=== PATIENT | female | born 1940 | race Two or more races ===

== ENCOUNTER 2019-07-17 21:53 | Inpatient (IN) | payer MEDICARE, OTHER ==
[~2019-07-17] VITALS: Ht 157.5 cm; Wt 79.8 kg
[2019-07-17] MEDS ORDERED: OLME20TA13 PO (22:22)
[2019-07-17] MEDS ORDERED: APIX2.5T PO (22:22)
[2019-07-17] MEDS ORDERED: AMLO10TA7 PO (22:22)
[2019-07-17] MEDS ORDERED: ESOM40CA PO (22:22)
[2019-07-17] MEDS ORDERED: FURO20TA4 PO (22:22)
[2019-07-17] MEDS ORDERED: PARI1CAP PO (22:22)
[2019-07-17] MEDS ORDERED: HYDR-3980 PO (22:22)
[2019-07-17] MEDS ORDERED: FEBU40TA PO (22:22)
[2019-07-17] MEDS ORDERED: CETI-110 PO (22:22)
--- NOTE | 2019-07-17 22:40 | NUR ---
Admitted patient from [facility] with admitting diagnosis of R hip replacement. Patient arrived in the unit @2124 through gurney, accompanied by two general service technician and three family members. Not in acute distress or SOB. AAO x 2, sometimes confused. On room air. Condition fair. Persian speaking. Allergic to sulfa, cephalexin, and metronidazole. Full code. Dr. Meza was informed. History was taking from the family. Physical assessment done. MRSA swap done and sent to the lab. Skin assessed, picture taken and put in the chart. Medication reconciliation done, contacted [facility] on-call, and waiting for Estefania TIMBER HEWER to respond. Bed in low and lock position, bed alarm on, side rail is up x2 for safety. Educated patient to use call light. Call light and frequently used items within reach. Continue to monitor.
[2019-07-17 23:09] VITALS: BP 146/63
[2019-07-17] MEDS ORDERED: ACETAMINOPHEN 325 MG TABLET PO PRN (23:15)
[2019-07-17] MEDS: APIXABAN 5 MG TABLET PO SCH (23:15)
--- NOTE | 2019-07-17 23:40 | NUR ---
Patient had high temperature. Checked two times: T: 100.6 F, 100.1 F. Cooling measure applied. Contacted [facility] on-call. Received order of Tylenol 650 mg Q6HPRN from Estefania GUTIERREZ. Medication administered. Rechecked T after half an hour, T: 99.9 F. Continue to monitor.
[2019-07-18] MEDS: HYDROCODONE/APAP 5-325MG TABLET PO PRN (03:04)
[2019-07-18 04:00] VITALS: BP 151/72
[2019-07-18] MEDS: PANTOPRAZOLE SODIUM 40 MG TABLET.DR PO SCH (06:40)
[2019-07-18 08:00] VITALS: BP 143/66
[2019-07-18] MEDS: CHOLECALCIFEROL 400 UNITS TABLET PO SCH (08:48)
[2019-07-18] MEDS: ALLOPURINOL 100 MG TABLET PO SCH (08:48)
[2019-07-18] MEDS: CETIRIZINE HCL 10 MG TABLET PO SCH (08:48)
[2019-07-18] MEDS: APIXABAN 5 MG TABLET PO SCH (08:50)
[2019-07-18] MEDS ORDERED: AMLODIPINE 10 MG TABLET PO SCH (09:00)
[2019-07-18] MEDS ORDERED: FUROSEMIDE 20 MG TABLET PO SCH (09:00)
[2019-07-18] MEDS ORDERED: LOSARTAN POTASSIUM 25 MG TABLET PO SCH (09:00)
[2019-07-18 10:34] LABS: CARBON DIOXIDE 27 mmol/L (21-32); CHLORIDE 97 mmol/L (98-107); CREATININE 1.4 mg/dL (0.6-1.3); GLUCOSE 144 mg/dL (74-106); POTASSIUM 4.8 mmol/L (3.5-5.1); UREA NITROGEN, BLOOD 31 mg/dL (7-18)
[2019-07-18 10:56] LABS: BASOPHILS # (AUTO) 0.1 K/uL (0.0-8.0); BASOPHILS % (AUTO) 0.5 % (0.0-2.0); EOSINOPHILS # (AUTO) 0.1 K/uL (0.0-0.7); EOSINOPHILS % (AUTO) 0.6 % (0.0-7.0); HEMATOCRIT 23.8 % (31.2-41.9); HEMOGLOBIN 7.9 g/dL (10.9-14.3); LYMPHOCYTES # (AUTO) 1.1 K/uL (20.0-40.0); LYMPHOCYTES % (AUTO) 7.8 % (20.5-51.5); MEAN CORPUSCULAR HEMOGLOBIN 30.8 uug (24.7-32.8); MEAN CORPUSCULAR HGB CONC 33 g/dL (32.3-35.6); MEAN CORPUSCULAR VOLUME 93.4 fL (75.5-95.3); MONOCYTES # (AUTO) 1.4 K/uL (2.0-10.0); MONOCYTES % (AUTO) 10.7 % (0.0-11.0); NEUTROPHILS # (AUTO) 10.8 K/uL (1.8-8.9); NEUTROPHILS % (AUTO) 80.4 % (38.5-71.5); PLATELET COUNT (AUTO) 263 K/uL (179-408); RED BLOOD CELL COUNT(AUTO) 2.55 MIL/uL (3.63-4.92); WHITE BLOOD COUNT (AUTO) 13.5 K/uL (3.8-11.8)
[2019-07-18 11:05] LABS: ALANINE AMINOTRANSFERASE 22 U/L (14-59); ALKALINE PHOSPHATASE 91 U/L (50-136); ASPARTATE AMINOTRANSFERASE 33 U/L (15-37); BILIRUBIN,DIRECT 0.2 mg/dL (0.0-0.2); BILIRUBIN,TOTAL 0.8 mg/dL (0.2-1.0); MAGNESIUM 1.6 mg/dL (1.8-2.4); PHOSPHOROUS 4.2 mg/dL (2.5-4.9); TOTAL PROTEIN, SERUM 6.8 g/dL (6.4-8.2)
[2019-07-18 11:40] LABS: IRON, SERUM 12 ug/dL (50-175)
[2019-07-18 15:17] VITALS: BP 126/52
[2019-07-18] MEDS: ACETAMINOPHEN 325 MG TABLET PO PRN (18:50)
[2019-07-18 20:16] VITALS: BP 119/57
[2019-07-18] MEDS: HYDROCODONE/APAP 10-325 MG TABLET PO PRN (21:18)
--- NOTE | 2019-07-18 21:25 | NUR ---
Received patient sleeping in bed. Not in acute distress or SOB, but her skin looked pale. On room air. Able to make needs known. Body gesture and facial grimace showed that she is in pain. Family at the bedside. Family asked her about the level of the pain, stated severe pain. PRN Narco 10-325 mg administered. Physical assessment done. Fall prevention observed. Safety measures maintained. Bed in low and lock position, alarm on, side rails up x2 for safety. Call light and frequently used items within reach. Continue to monitor.
--- NOTE | 2019-07-19 03:10 | NUR ---
Tried two times to collect the urine using bedpan, unsuccessful. Collected the urine by straight catheter and sent the sample to the lab.
[2019-07-19 03:54] LABS: *BILIRUBIN,URIN NEGATIVE (NEGATIVE); *COLOR,URINE YELLOW (YELLOW); *KETONES,URINE NEGATIVE (NEGATIVE); *UROBILINOGEN,URINE 0.2 E.U./dl (NORMAL); LEUKOCYTE ESTERASE ,URINE 2+ (NEGATIVE); NITRITE, URINE POSITIVE (NEGATIVE); PH,URINE 5.5 (5.0-8.0); UGLUCOSE NEGATIVE (NEGATIVE)
[2019-07-19 03:57] LABS: *BLOOD, URINE TRACE (NEGATIVE); *CLARITY,URINE SLIGHTLY CLOUDY (CLEAR)
[2019-07-19 04:00] LABS: BACTERIA,URINE MANY /HPF (NONE SEEN); SQUAMOUS EPITHELIAL CELL,UR FEW /HPF (NONE SEEN); WBC,URINE 50-80 /HPF (0-3)
[2019-07-19 05:27] VITALS: BP 155/72
[2019-07-19] MEDS: PANTOPRAZOLE SODIUM 40 MG TABLET.DR PO SCH (06:29)
[2019-07-19 07:56] VITALS: BP 134/57
[2019-07-19] MEDS: HYDROCODONE/APAP 5-325MG TABLET PO PRN ×4 (08:01→23:55)
--- NOTE | 2019-07-19 08:30 | NUR ---
PATIENT IS IN BED, NOTED IN PAIN, FACIAL GRIMACING, MOANING, WHILE MOVING DURING CHANGE, OFFERED PAIN MEDICATION, PATIENT AGREED, NORCO ADMINISTERED ORDERED, CONTINUE TO MONITOR FOR PAIN. NO OTHER DISTRESS NOTED AT THIS TIME
[2019-07-19] MEDS ORDERED: AMLODIPINE 10 MG TABLET PO SCH (09:00)
[2019-07-19] MEDS: CHOLECALCIFEROL 400 UNITS TABLET PO SCH (09:09)
[2019-07-19] MEDS: CETIRIZINE HCL 10 MG TABLET PO SCH (09:10)
[2019-07-19] MEDS: ALLOPURINOL 100 MG TABLET PO SCH (09:10)
--- NOTE | 2019-07-19 09:30 | NUR ---
PATIENT IS SITTING IN BED, ALERT, AWAKE, ORIENTED X4, VERBALLY RESPONSIVE, NO DISTRESS NOTED, NO DIZZINESS OR DROWSINESS NOTED. NO FACIAL GRIMACING, OR MOANING NOTED AT THIS TIME
[2019-07-19] MEDS: LEVOFLOXACIN 250 MG TABLET PO SCH (09:58)
--- NOTE | 2019-07-19 11:41 | NUR ---
TRANSFERRED PATIENT TO CHAIR WITH OPHTHALMIC TECHNICIAN APPRENTICE OF PT. DAUGHTER AT BEDSIDE, NAME SHRUTHI, STATED SHE DOES NOT WANT HER MOTHER TO HAVE NORCO, DAUGHTER IS VERY RESISTANT TO PAIN MEDICATION AND STATED SHE ONLY WANTS TO HAVE HER MOTHER TO TYLENOL. TRIED TO EXPLAIN TO DAUGHTER SHRUTHI THAT PAIN NEED TO BE WELL MANAGED IN ORDER TO MAKE PATIENT PARTICIPATE IN PT, OT SERVICES.
--- NOTE | 2019-07-19 12:30 | NUR ---
PATIENT FELT DIZZY WHILE SITTING IN CHAIR, PUT BACK TO BED WITH CURING SUPERVISOR OF OT, VITAL TAKEN, BLOOD PRESSURE 107/43, PULSE 108,RESP 16, TEMP 98.1, O2 SAT AT ROOM AIR IS 95%, CONTINUE TO MONITOR Addendum: 07/19/19 at 1423 by ARUNA LAWTON RN, RN BLOOD PRESSURE TAKEN AGAIN LAYING POSITION IS 108/48, PULSE 100, RESP 18,TEMP 98.1, O2 SAT 95 AT ROOM AIR. NO ORTHOSTATIC BLOOD PRESSURE NOTED
--- NOTE | 2019-07-19 13:39 | NUR ---
PATIENT DAUGHTER SHRUTHI REQUESTED TYLENOL TO BE GIVEN TO PATIENT FOR PAIN, ADMINISTERED ORDERED.
[2019-07-19] MEDS: ACETAMINOPHEN 325 MG TABLET PO PRN (13:43)
--- NOTE | 2019-07-19 14:25 | NUR ---
REPORTED TO DR STEVENS REGARDING PATIENT CURRENT CONDITION UNABLE TO TOLERATE SITTING IN CHAIR, FELT DIZZY. PER MD CONTINUE TO MONITOR
--- NOTE | 2019-07-19 14:57 | NUR ---
PATIENT SITTING AT EDGE OF THE BED, WITH ASSISTANCE OF NURSE AND PT. TOLERATED WELL. NO DISTRESS NOTED, NO ORTHOSTATIC BLOOD PRESSURE NOTED.
[2019-07-19 16:35] VITALS: BP 134/52
--- NOTE | 2019-07-19 17:23 | NUR ---
PATIENT STARTED ON LEVAQUIN ORDERED, FOR UTI, NO ADVERSE REACTION NOTED, GOOD PERICARE PROVIDED, ENCOURAGED TO INCREASED PO FLUIDS, TEACHING PROVIDED FOR SPIROMETER.
--- NOTE | 2019-07-19 19:30 | NUR ---
Received patient in bed awake, alert and oriented w/ daughter at bedside. No SOB noted, not in distress. No complaints of pain at this time. Safety measures observed. Call light in reach
[2019-07-19 19:46] VITALS: BP 136/69
--- NOTE | 2019-07-19 22:00 | NUR ---
Patient seen by Sulma GUTIERREZ w/ n.o for bladder scan q8 and may straight cath for residuals 300 and above, to start this morning.
[2019-07-20] VITALS (9 sets, daily range): BP systolic 117–141; BP diastolic 50–65
--- NOTE | 2019-07-20 04:43 | NUR ---
Bladder scan done, noted w/ 366ml residuals, PRN straight cath done as ordered, urine output was 600ml. Good pericare provided Addendum: 07/20/19 at 0446 by SUNITHA CALLAWAY RN Amended: Links added.
[2019-07-20] MEDS: PANTOPRAZOLE SODIUM 40 MG TABLET.DR PO SCH (06:17)
--- NOTE | 2019-07-20 06:33 | NUR ---
Patient slept intermittently. c/o R hip and R arm pain, PRN Laurel 5-325mg PO given as ordered. All needs attended. Will endorse accordingly
[2019-07-20 07:11] LABS: BASOPHILS % (AUTO) 0.4 % (0.0-2.0); EOSINOPHILS # (AUTO) 0.2 K/uL (0.0-0.7); EOSINOPHILS % (AUTO) 2.6 % (0.0-7.0); LYMPHOCYTES # (AUTO) 1.4 K/uL (20.0-40.0); LYMPHOCYTES % (AUTO) 14.9 % (20.5-51.5); MEAN CORPUSCULAR HEMOGLOBIN 30.5 uug (24.7-32.8); MEAN CORPUSCULAR HGB CONC 33 g/dL (32.3-35.6); MEAN CORPUSCULAR VOLUME 91.2 fL (75.5-95.3); MONOCYTES # (AUTO) 1.2 K/uL (2.0-10.0); MONOCYTES % (AUTO) 12.5 % (0.0-11.0); NEUTROPHILS # (AUTO) 6.6 K/uL (1.8-8.9); NEUTROPHILS % (AUTO) 69.6 % (38.5-71.5); PLATELET COUNT (AUTO) 299 K/uL (179-408); WHITE BLOOD COUNT (AUTO) 9.5 K/uL (3.8-11.8)
[2019-07-20 07:20] LABS: CREATININE 1.3 mg/dL (0.6-1.3); POTASSIUM 4.3 mmol/L (3.5-5.1)
[2019-07-20] MEDS: CHOLECALCIFEROL 400 UNITS TABLET PO SCH (08:33)
[2019-07-20] MEDS: ALLOPURINOL 100 MG TABLET PO SCH (08:34)
[2019-07-20] MEDS: LEVOFLOXACIN 250 MG TABLET PO SCH (08:34)
[2019-07-20] MEDS: CETIRIZINE HCL 10 MG TABLET PO SCH (08:34)
[2019-07-20] MEDS: HYDROCODONE/APAP 5-325MG TABLET PO PRN (09:21)
[2019-07-20] MEDS: FERROUS GLUCONATE 324 MG TABLET PO SCH (11:50)
[2019-07-20] MEDS: ACETAMINOPHEN 325 MG TABLET PO PRN (11:50)
--- NOTE | 2019-07-20 11:51 | NUR ---
VITALS CHECKED TEMP ORALLY 99.1, NICOLASA JARRETT IS AWARE, OK TO TRANSFUSE BLOOD. TYLENOL ADMINISTERED ORDERED
--- NOTE | 2019-07-20 13:04 | NUR ---
NOTED WITH BLUISH DISCOLORATION, HARD TO TOUCH AREA, NEXT TO IV SITE, NOTIFIED KOLBY BALDWIN, WITH ORDER TO START ANOTHER IV AND RESUME BLOOD TRANSFUSION. Addendum: 07/20/19 at 1356 by ARUNA LAWTON RN, RN stopped blood transfusion
--- NOTE | 2019-07-20 13:19 | NUR ---
resumed blood transfusion Addendum: 07/20/19 at 1412 by ARUNA LAWTON RN RN PERIPHERAL IV LINE GAUGE 20 RESTARTED
--- NOTE | 2019-07-20 13:57 | NUR ---
bladder scan performed with result of 502ml
--- NOTE | 2019-07-20 14:12 | NUR ---
PATIENT IS IN BED, NO DISTRESS NOTED, CONTINUOUS WITH BLOOD TRANSFUSION, NO ADVERSE REACTIONS NOTED, NO CRACKLES HEARD UPON AUSCULTATION, NO SOB, RESP EVEN NONLABORED, NO CHILLS, NO INCREASED BODY TEMP NOTED, PATIENT IS TOLERATING BL0OD TRANSFUSION WELL, NO INFILTRATION OF IV SITE NOTED. CONTINUE TO MONITOR
--- NOTE | 2019-07-20 15:37 | NUR ---
INDIVIDUALIZE OVERALL PLAN OF CARE
[2019-07-20] MEDS: HYDROCODONE/APAP 10-325 MG TABLET PO PRN (15:54)
[2019-07-20] MEDS: SOD FERRIC GLUC COMPLX/SUCROSE 125 MG in IV NORMAL SALINE 100 ML IV SCH (15:55)
--- NOTE | 2019-07-20 16:15 | NUR ---
patient refused for straight catheter, bladder scan performed again result of 0ml, noted with urinated in diaper large amount
--- NOTE | 2019-07-20 17:44 | NUR ---
PATIENT IS ALERT, AWAKE, NO SOB,RESP EVEN NONLABORED,SKIN WARM AND DRY TO TOUCH, NO DISTRESS NOTED, LUNG SOUNDS ARE CLEAR UPON AUSCULTATION, DAUGHTER IS AT BEDSIDE, ASSISTING PATIENT WITH EATING DINNER.
--- NOTE | 2019-07-20 18:27 | NUR ---
NEW ORDER OBTAINED FROM DR CERVANTES FOR ROUTINE TYLENOL AROUND THE CLOCK FOR PAIN MANAGEMENT
--- NOTE | 2019-07-20 19:30 | NUR ---
Received patient in bed awake, alert and oriented w/ family at bedside. No SOB noted, not in distress. No complaints of pain at this time. Safety measures observed. Call light in reach
--- NOTE | 2019-07-20 21:00 | NUR ---
Bladder scan done, noted w/ 578 residuals, will insert straight cath as ordered Addendum: 07/20/19 at 2239 by SUNITHA CALLAWAY RN Amended: Links added.
[2019-07-21] MEDS ORDERED: ACETAMINOPHEN 325 MG TABLET PO SCH
--- NOTE | 2019-07-21 | NUR ---
Patient noted w/ elevated Temp 100.7 at 2300. Routine Tylenol 500mg given and cooling measures initiated. Rechecked Temp at 0000, went down to 98.6. Will continue to monitor
[2019-07-21] MEDS: HYDROCODONE/APAP 5-325MG TABLET PO PRN (04:31)
[2019-07-21 05:55] VITALS: BP 124/71
[2019-07-21] MEDS: ACETAMINOPHEN ES 500 MG TABLET PO SCH ×6 (06:05→19:12)
[2019-07-21] MEDS: PANTOPRAZOLE SODIUM 40 MG TABLET.DR PO SCH (06:05)
[2019-07-21 07:35] VITALS: BP 124/67
[2019-07-21 07:37] LABS: BASOPHILS % (AUTO) 0.4 % (0.0-2.0); EOSINOPHILS # (AUTO) 0.1 K/uL (0.0-0.7); EOSINOPHILS % (AUTO) 0.9 % (0.0-7.0); HEMATOCRIT 22.6 % (31.2-41.9); HEMOGLOBIN 7.8 g/dL (10.9-14.3); LYMPHOCYTES % (AUTO) 12.5 % (20.5-51.5); MEAN CORPUSCULAR HEMOGLOBIN 30.9 uug (24.7-32.8); MEAN CORPUSCULAR HGB CONC 35 g/dL (32.3-35.6); MEAN CORPUSCULAR VOLUME 89.5 fL (75.5-95.3); MONOCYTES % (AUTO) 11.9 % (0.0-11.0); NEUTROPHILS # (AUTO) 6.2 K/uL (1.8-8.9); NEUTROPHILS % (AUTO) 74.3 % (38.5-71.5); PLATELET COUNT (AUTO) 306 K/uL (179-408); RED BLOOD CELL COUNT(AUTO) 2.53 MIL/uL (3.63-4.92); WHITE BLOOD COUNT (AUTO) 8.4 K/uL (3.8-11.8)
[2019-07-21 07:42] LABS: CREATININE 1.2 mg/dL (0.6-1.3); MAGNESIUM 1.8 mg/dL (1.8-2.4); PHOSPHOROUS 3.4 mg/dL (2.5-4.9)
[2019-07-21] MEDS: LEVOFLOXACIN 250 MG TABLET PO SCH (09:46)
[2019-07-21] MEDS: CHOLECALCIFEROL 400 UNITS TABLET PO SCH (09:46)
[2019-07-21] MEDS: HYDROCODONE/APAP 10-325 MG TABLET PO PRN (09:46)
[2019-07-21] MEDS: CETIRIZINE HCL 10 MG TABLET PO SCH (09:46)
[2019-07-21] MEDS: ALLOPURINOL 100 MG TABLET PO SCH (09:46)
[2019-07-21] MEDS: FERROUS GLUCONATE 324 MG TABLET PO SCH (10:14)
[2019-07-21 11:56] LABS: *OCCULT BLOOD STOOL NEGATIVE (NEGATIVE)
[2019-07-21] MEDS: SOD FERRIC GLUC COMPLX/SUCROSE 125 MG in IV NORMAL SALINE 100 ML IV SCH (14:00)
[2019-07-21 15:43] VITALS: BP 149/60
--- NOTE | 2019-07-21 16:45 | NUR ---
Called and left message to CNA PCT, Dali Ayala re: Need for clarification of CT orders. Awaiting response.
[2019-07-21] MEDS ORDERED: PHENAZOPYRIDINE HCL 100 MG TABLET PO ONE (17:00)
--- NOTE | 2019-07-21 17:54 | NUR ---
NO MORE NORCO PLEASE! and NO MORPHINE PLEASE! Per pt's daughter, Estrellita, Palisade and Morphine alters pt's mental status and makes pt hallucinate. Per Estrellita, please do not give Palisade or morphine UNLESS Estrellita says it is okay. Please check with Estrellita first. If she is not here, please call .
--- NOTE | 2019-07-21 18:00 | NUR ---
Bladder Scan revealed >349 ml. Straight cath performed with sterile technique per MD orders. Noted 650 ml clear twin urine. Pt reported relief. Monitoring continued.
--- NOTE | 2019-07-21 18:05 | NUR ---
Noted bladder to be empty upon bladder scan after straight cath.
--- NOTE | 2019-07-21 19:30 | NUR ---
ROAD OILING TRUCK DRIVER reported pt's ZK=672's/150's. Re-checked BP. DB=181/57 mmHG. Pt resting calmly in bed with eyes closed. Family members at bedside.
[2019-07-21 20:00] VITALS: BP 132/57
[2019-07-21 20:13] VITALS: BP 183/154
[2019-07-21 21:30] VITALS: BP 132/57
--- NOTE | 2019-07-21 23:23 | NUR ---
Hand off report giving to nurse Leigh Ann
--- NOTE | 2019-07-21 23:46 | NUR ---
REPORT RECEIVED FROM CLAUDIO STORY. PATIENTS RECEIVED ASLEEP. NO DISTRESS NOTED. WILL CONTINUE TO MONITOR.
[2019-07-22] MEDS: ACETAMINOPHEN ES 500 MG TABLET PO SCH ×5 (00:28→23:22)
--- NOTE | 2019-07-22 00:28 | NUR ---
Bladder scan performed to show 366 mL in bladder. Straight cath performed. 300 mL taken out. Will continue to monitor.
[2019-07-22] MEDS: HYDROCODONE/APAP 5-325MG TABLET PO PRN ×2 (01:46→09:12)
[2019-07-22 05:46] VITALS: BP 153/60
[2019-07-22] MEDS: PANTOPRAZOLE SODIUM 40 MG TABLET.DR PO SCH (06:00)
[2019-07-22 07:08] LABS: BASOPHILS % (AUTO) 0.5 % (0.0-2.0); EOSINOPHILS # (AUTO) 0.2 K/uL (0.0-0.7); EOSINOPHILS % (AUTO) 2.2 % (0.0-7.0); HEMATOCRIT 22.4 % (31.2-41.9); HEMOGLOBIN 7.7 g/dL (10.9-14.3); LYMPHOCYTES # (AUTO) 1.5 K/uL (20.0-40.0); MEAN CORPUSCULAR HEMOGLOBIN 31.3 uug (24.7-32.8); MEAN CORPUSCULAR HGB CONC 34 g/dL (32.3-35.6); MEAN CORPUSCULAR VOLUME 90.8 fL (75.5-95.3); MONOCYTES # (AUTO) 0.9 K/uL (2.0-10.0); MONOCYTES % (AUTO) 11.6 % (0.0-11.0); NEUTROPHILS # (AUTO) 5.2 K/uL (1.8-8.9); NEUTROPHILS % (AUTO) 66.7 % (38.5-71.5); PLATELET COUNT (AUTO) 314 K/uL (179-408); WHITE BLOOD COUNT (AUTO) 7.8 K/uL (3.8-11.8)
[2019-07-22 07:12] LABS: RED BLOOD CELL COUNT(AUTO) 2.46 MIL/uL (3.63-4.92)
[2019-07-22 08:00] VITALS: BP 146/62
[2019-07-22] MEDS: CHOLECALCIFEROL 400 UNITS TABLET PO SCH (09:13)
[2019-07-22] MEDS: ALLOPURINOL 100 MG TABLET PO SCH (09:13)
[2019-07-22] MEDS: CETIRIZINE HCL 10 MG TABLET PO SCH (09:13)
[2019-07-22] MEDS: LEVOFLOXACIN 250 MG TABLET PO SCH (09:14)
[2019-07-22] MEDS: FERROUS GLUCONATE 324 MG TABLET PO SCH (11:49)
--- NOTE | 2019-07-22 12:03 | NUR ---
WOUND CARE CONSULT: PT PRESENTS WITH GLUTEAL CREASE INCONTINENCE ASSOCIATED SKIN DAMAGE. PT IS INCONTINENT OF URINE AND STOOL. RECOMMENDATIONS MADE FOR SKIN CARE AND PROTECTION. DISCUSSED WITH NURSING STAFF. FIRST STEP LOW AIRLOSS MATTRESS ORDERED. WILL SEE PRN. TAYLOR IN AGREEMENT WITH PLAN OF CARE. CURRENT LUZMA SCORE IS 11. Addendum: 07/22/19 at 1206 by TYRON KAYE RN Amended: Links added.
--- NOTE | 2019-07-22 12:24 | NUR ---
Social Work Note: make up worker met with patients daughter Estrellita who stated that she is confused with patients placement. make up worker provided patient with resources such as [facility] packet and advised her to apply. Per Estrellita, she was unable to state patients source of income. She stated that patient lives in a condo upstairs and is worried about patients care. She is minimally involved in the care. make up worker informed David field nurse case manager to follow up with patient in regard to discharge planning.
[2019-07-22] MEDS: SOD FERRIC GLUC COMPLX/SUCROSE 125 MG in IV NORMAL SALINE 100 ML IV SCH (13:47)
--- NOTE | 2019-07-22 13:48 | NUR ---
Social Work Note: break out worker met with patient and patient spoke in North Korean. This promotion writer conducted patients cognition. Patient presented euthymic. Patient presented alert and oriented x3 (self,situation, place). Patient was able to stated that she is admitted to the hospital, able to state full name, and able to state her situation. Patient stated that she has back pain. break out worker provided comfort. break out worker will follow up with patient regularly.
--- NOTE | 2019-07-22 15:14 | NUR ---
INTERDISCIPLINARY TEAM CONFERENCE
[2019-07-22 16:00] VITALS: BP 144/53
--- NOTE | 2019-07-22 17:39 | NUR ---
BLADDER SCAN PERFORMED WITH RESULT OF 90ML. PATIENT HAS VOIDED IN DIAPER X3 WITH GOOD AMOUNT
[2019-07-22] MEDS ORDERED: HYDROCORTISONE 1% CREAM 30 GM TUBE TP PRN (18:45)
--- NOTE | 2019-07-22 20:00 | NUR ---
NSG: RECEIVED PATIENT LYING IN BED, NO DISTRESS NOTED, FAMILY AT BEDSIDE. NO CRACKLES HEARD UPON AUSCULTATION, NO SOB, RESP EVEN NONLABORED, NO C/O PAIN OR DISCOMFORT AT THIS TIME. ASSISTED WITH ADL'S. REPOSITIONED FOR SKIN SAFETY AND COMFORT. BED ALARM ON. CALL LIGHT W/IN REACH. CONTINUE TO MONITOR
[2019-07-22 20:45] VITALS: BP 158/67
[2019-07-22 21:00] VITALS: BP 136/66
--- NOTE | 2019-07-23 00:47 | NUR ---
Bladder scan performed to show 506 mL in bladder. Straight cath performed. 600 mL taken out. Will continue to monitor.
[2019-07-23] MEDS: ACETAMINOPHEN ES 500 MG TABLET PO SCH ×4 (05:16→23:14)
[2019-07-23] MEDS: PANTOPRAZOLE SODIUM 40 MG TABLET.DR PO SCH (06:02)
[2019-07-23 06:50] VITALS: BP 157/64
[2019-07-23 07:38] LABS: BASOPHILS % (AUTO) 0.4 % (0.0-2.0); EOSINOPHILS # (AUTO) 0.2 K/uL (0.0-0.7); EOSINOPHILS % (AUTO) 2.1 % (0.0-7.0); HEMATOCRIT 23.2 % (31.2-41.9); HEMOGLOBIN 7.8 g/dL (10.9-14.3); MEAN CORPUSCULAR HEMOGLOBIN 31.5 uug (24.7-32.8); MEAN CORPUSCULAR HGB CONC 34 g/dL (32.3-35.6); MEAN CORPUSCULAR VOLUME 93.5 fL (75.5-95.3); MONOCYTES # (AUTO) 0.5 K/uL (2.0-10.0); MONOCYTES % (AUTO) 6.6 % (0.0-11.0); NEUTROPHILS # (AUTO) 6.5 K/uL (1.8-8.9); NEUTROPHILS % (AUTO) 78.9 % (38.5-71.5); PLATELET COUNT (AUTO) 340 K/uL (179-408); RED BLOOD CELL COUNT(AUTO) 2.48 MIL/uL (3.63-4.92); WHITE BLOOD COUNT (AUTO) 8.2 K/uL (3.8-11.8)
[2019-07-23 07:59] VITALS: BP 159/63
[2019-07-23 08:10] LABS: CARBON DIOXIDE 29 mmol/L (21-32); CHLORIDE 101 mmol/L (98-107); CREATININE 1.2 mg/dL (0.6-1.3); GLUCOSE 108 mg/dL (74-106); MAGNESIUM 1.8 mg/dL (1.8-2.4); PHOSPHOROUS 3.3 mg/dL (2.5-4.9); POTASSIUM 3.5 mmol/L (3.5-5.1); UREA NITROGEN, BLOOD 24 mg/dL (7-18)
[2019-07-23] MEDS: CHOLECALCIFEROL 400 UNITS TABLET PO SCH (08:34)
[2019-07-23] MEDS: MODAFINIL 100 MG TABLET PO SCH (08:34)
[2019-07-23] MEDS: LEVOFLOXACIN 250 MG TABLET PO SCH (08:35)
[2019-07-23] MEDS: ALLOPURINOL 100 MG TABLET PO SCH (08:35)
[2019-07-23] MEDS: CETIRIZINE HCL 10 MG TABLET PO SCH (08:35)
[2019-07-23] MEDS ORDERED: MODAFINIL 100 MG TABLET PO SCH (09:00)
[2019-07-23] MEDS ORDERED: POTASSIUM CHLORIDE 20 MEQ POWDER PACKET GT ONE (09:30)
[2019-07-23] MEDS ORDERED: POTASSIUM CHLORIDE 20 MEQ TAB.PRT.SR PO ONE (11:00)
[2019-07-23] MEDS: FERROUS GLUCONATE 324 MG TABLET PO SCH (11:10)
[2019-07-23] MEDS: SOD FERRIC GLUC COMPLX/SUCROSE 125 MG in IV NORMAL SALINE 100 ML IV SCH (13:55)
[2019-07-23 16:27] VITALS: BP 130/55
--- NOTE | 2019-07-23 17:46 | NUR ---
bladder scan performed with result of 282ml and voided x3
--- NOTE | 2019-07-23 18:25 | NUR ---
PATIENT VOIDED AFTER BLADDER SCAN PERFORMED, ASSISTED TO THE COMMODE, TOTAL ASSIST, NO DISTRESS NOTED.POTASSIUM REPLACED ORALLY.
--- NOTE | 2019-07-23 19:30 | NUR ---
Received in bed, eyes closed, but arousable. Family at bedside.
[2019-07-23 20:35] VITALS: BP 144/54
--- NOTE | 2019-07-23 20:45 | NUR ---
Pt assisted to commode with max assist. Voided. Remedios care done.
--- NOTE | 2019-07-23 23:00 | NUR ---
Pt voided, diaper wet. Bladder scanned, PVR was 0 ml.
[2019-07-24 05:39] VITALS: BP 161/58
--- NOTE | 2019-07-24 06:02 | NUR ---
Inserted new peripheral IV site on L hand #22. Patent and intact. Received last night without IV site.
[2019-07-24] MEDS: PANTOPRAZOLE SODIUM 40 MG TABLET.DR PO SCH (06:04)
[2019-07-24] MEDS: ACETAMINOPHEN ES 500 MG TABLET PO SCH ×4 (06:04→23:07)
[2019-07-24 06:47] VITALS: BP 159/73
[2019-07-24 08:31] VITALS: BP 139/49
[2019-07-24] MEDS: LEVOFLOXACIN 250 MG TABLET PO SCH (09:00)
[2019-07-24] MEDS: CETIRIZINE HCL 10 MG TABLET PO SCH (09:00)
[2019-07-24] MEDS: MODAFINIL 100 MG TABLET PO SCH (09:00)
[2019-07-24] MEDS: CHOLECALCIFEROL 400 UNITS TABLET PO SCH (09:00)
[2019-07-24] MEDS: ALLOPURINOL 100 MG TABLET PO SCH (09:00)
[2019-07-24] MEDS: FERROUS GLUCONATE 324 MG TABLET PO SCH (12:21)
[2019-07-24] MEDS: SOD FERRIC GLUC COMPLX/SUCROSE 125 MG in IV NORMAL SALINE 100 ML IV SCH (14:00)
--- NOTE | 2019-07-24 19:10 | NUR ---
pt in stable condition, axo x4, family is by the bedside.
[2019-07-24 20:06] VITALS: BP 142/50
[2019-07-24] MEDS: CULTURELLE CAPSULE PO SCH (20:06)
--- NOTE | 2019-07-24 23:00 | NUR ---
pt able to void, bladder scan vol. 0 ml
[2019-07-25 05:16] VITALS: BP 161/68
--- NOTE | 2019-07-25 05:20 | NUR ---
no acute events overnight, pain is well managed with round the clock tylenol. pt able to void, no fever, no nausea and no vomiting
[2019-07-25] MEDS: PANTOPRAZOLE SODIUM 40 MG TABLET.DR PO SCH (06:30)
[2019-07-25] MEDS: ACETAMINOPHEN ES 500 MG TABLET PO SCH ×4 (06:35→23:15)
[2019-07-25 06:43] LABS: MAGNESIUM 1.7 mg/dL (1.8-2.4); PHOSPHOROUS 3.4 mg/dL (2.5-4.9); POTASSIUM 3.7 mmol/L (3.5-5.1)
[2019-07-25 06:58] LABS: BASOPHILS % (AUTO) 0.4 % (0.0-2.0); EOSINOPHILS # (AUTO) 0.2 K/uL (0.0-0.7); EOSINOPHILS % (AUTO) 3.3 % (0.0-7.0); HEMATOCRIT 23.8 % (31.2-41.9); HEMOGLOBIN 8.1 g/dL (10.9-14.3); LYMPHOCYTES # (AUTO) 1.3 K/uL (20.0-40.0); MEAN CORPUSCULAR HGB CONC 34 g/dL (32.3-35.6); MEAN CORPUSCULAR VOLUME 93.7 fL (75.5-95.3); MONOCYTES # (AUTO) 0.6 K/uL (2.0-10.0); MONOCYTES % (AUTO) 7.3 % (0.0-11.0); NEUTROPHILS # (AUTO) 5.5 K/uL (1.8-8.9); PLATELET COUNT (AUTO) 414 K/uL (179-408); RED BLOOD CELL COUNT(AUTO) 2.54 MIL/uL (3.63-4.92); WHITE BLOOD COUNT (AUTO) 7.6 K/uL (3.8-11.8)
[2019-07-25 07:36] VITALS: BP 171/62
[2019-07-25] MEDS ORDERED: MAGNESIUM OXIDE 400 MG TABLET PO ONE (09:15)
[2019-07-25] MEDS ORDERED: POTASSIUM CHLORIDE 20 MEQ POWDER PACKET PO ONE (09:30)
[2019-07-25] MEDS: MODAFINIL 100 MG TABLET PO SCH (09:36)
[2019-07-25] MEDS: CHOLECALCIFEROL 400 UNITS TABLET PO SCH (09:37)
[2019-07-25] MEDS: ALLOPURINOL 100 MG TABLET PO SCH (09:37)
[2019-07-25] MEDS: CETIRIZINE HCL 10 MG TABLET PO SCH (09:37)
[2019-07-25] MEDS: LIDOCAINE 5% PATCH TD SCH (09:39)
[2019-07-25] MEDS: LEVOFLOXACIN 250 MG TABLET PO SCH (09:39)
[2019-07-25] MEDS: CULTURELLE CAPSULE PO SCH ×2 (09:39→20:29)
[2019-07-25] MEDS: FERROUS GLUCONATE 324 MG TABLET PO SCH (11:05)
[2019-07-25] MEDS: AMLODIPINE 5 MG TABLET PO SCH (11:06)
[2019-07-25 14:53] VITALS: BP 154/62
--- NOTE | 2019-07-25 18:29 | NUR ---
Pt assessed, able to make needs known, no acute distress or SOB noted. Pain well managed throughout the shift with routine Tylenol. Pt compliant with nursing care. Bladder scans resulted in less than requirement for catheterization. Pt able to void with assistance to toilet. BM x3. Pt resting in bed with family visiting bedside. Call light within reach. Will continue to monitor.
--- NOTE | 2019-07-25 19:00 | NUR ---
PATIENT ALERT WITH FORGETFULNESS, NO SOB NO CHEST PAIN, PATIENT COMPLAIN OF MILD PAIN OF R HIP. PATIENT R HIP STAPLE INTACT, NO REDNESS NOTED, KEPT SITE CLEAN AND DRY. CONT ON PAIN MANAGEMENT, CONT TO MONITOR.
[2019-07-25 20:23] VITALS: BP 146/64
--- NOTE | 2019-07-26 00:49 | NUR ---
PATIENT URINATE IN DIAPER, BLADDER SCAN DONE WITH 684 RESIDUAL, IN AND OUT CATH DONE, OBTAINED 400CC URINE. PATIENT TOLERATE PROCEDURE WELL, CONT TO MONITOR. CONT TO MONITOR.
[2019-07-26 03:52] VITALS: BP 176/72
[2019-07-26] MEDS: Z GUARD REMEDY PASTE 57 GM TUBE TOP PRN (04:59)
[2019-07-26] MEDS: ACETAMINOPHEN ES 500 MG TABLET PO SCH ×4 (05:11→23:03)
--- NOTE | 2019-07-26 05:34 | NUR ---
PATIENT SLEPT MOST OF THE NIGHT, NO SOB NO CHEST PAIN, PATIENT URINATING ADEQUATELY, SOAK HER DIAPER, ABDOMEN SOFT. PATIENT CONT ON PAIN MANAGEMENT DUE R HIP ORIF, KEPT CLEAN AND DRY, CALL LIGHT WITHIN REACH.
[2019-07-26] MEDS: PANTOPRAZOLE SODIUM 40 MG TABLET.DR PO SCH (06:13)
[2019-07-26 06:45] VITALS: BP 154/59
--- NOTE | 2019-07-26 06:48 | NUR ---
PATIENT BP ELEVATE 176/72, PATIENT ASYMPTOMATIC. RECHECK 154/59, HR 87, ENDORSE TO NEXT SHIFT.
--- NOTE | 2019-07-26 06:53 | NUR ---
PATIENT HAS R ARM SLING, WITH EPISODE OF REMOVING IT, REORIENT PATIENT NOT TO REMOVED IT, ABLE TO UNDERSTAND, ENDORSE TO NEXT SHIFT.
[2019-07-26 07:51] VITALS: BP 147/60
[2019-07-26] MEDS: CULTURELLE CAPSULE PO SCH ×2 (08:38→21:57)
[2019-07-26] MEDS: ALLOPURINOL 100 MG TABLET PO SCH (08:39)
[2019-07-26] MEDS: MODAFINIL 100 MG TABLET PO SCH (08:39)
[2019-07-26] MEDS: CETIRIZINE HCL 10 MG TABLET PO SCH (08:39)
[2019-07-26] MEDS: CHOLECALCIFEROL 400 UNITS TABLET PO SCH (08:39)
[2019-07-26] MEDS: LIDOCAINE 5% PATCH TD SCH (08:39)
[2019-07-26] MEDS: AMLODIPINE 5 MG TABLET PO SCH (08:39)
[2019-07-26] MEDS: FERROUS GLUCONATE 324 MG TABLET PO SCH (11:59)
[2019-07-26 15:55] VITALS: BP 145/60
--- NOTE | 2019-07-26 17:47 | NUR ---
PATIENT BLADDER SCAN EVERY 8 HOURS WITH 00ML URINE. ASSISTED TO BATHROOM FOR URINATION WITH GOOD EFFECT. CONTINUE THERAPY FOR ADL PARTICIPATION. TOLERATED WELL. CONTINUE PAIN MANAGEMENT PRIOR TO THERAPY. NOT IN DISTRESS. NO COMPLAINT VOICE DURING ROUNDS. WILL CONTINUE MONITOR
[2019-07-26 21:16] VITALS: BP 143/55
--- NOTE | 2019-07-27 00:34 | NUR ---
Diaper wet, pt requested to be changed. bladder scanned 0 ml.
[2019-07-27] MEDS: ACETAMINOPHEN ES 500 MG TABLET PO SCH ×4 (05:37→23:05)
[2019-07-27 05:53] VITALS: BP_SYST 130; BP_SYST 150; BP_DIAS 49; BP_DIAS 67
[2019-07-27] MEDS: PANTOPRAZOLE SODIUM 40 MG TABLET.DR PO SCH (06:00)
[2019-07-27 07:30] LABS: BASOPHILS # (AUTO) 0.1 K/uL (0.0-8.0); BASOPHILS % (AUTO) 0.6 % (0.0-2.0); EOSINOPHILS # (AUTO) 0.2 K/uL (0.0-0.7); EOSINOPHILS % (AUTO) 2.4 % (0.0-7.0); HEMATOCRIT 25.1 % (31.2-41.9); HEMOGLOBIN 8.4 g/dL (10.9-14.3); LYMPHOCYTES # (AUTO) 1.5 K/uL (20.0-40.0); LYMPHOCYTES % (AUTO) 17.3 % (20.5-51.5); MEAN CORPUSCULAR HEMOGLOBIN 31.3 uug (24.7-32.8); MEAN CORPUSCULAR HGB CONC 33 g/dL (32.3-35.6); MEAN CORPUSCULAR VOLUME 93.8 fL (75.5-95.3); MONOCYTES # (AUTO) 0.7 K/uL (2.0-10.0); MONOCYTES % (AUTO) 8.1 % (0.0-11.0); NEUTROPHILS # (AUTO) 6.1 K/uL (1.8-8.9); NEUTROPHILS % (AUTO) 71.6 % (38.5-71.5); PLATELET COUNT (AUTO) 457 K/uL (179-408); RED BLOOD CELL COUNT(AUTO) 2.67 MIL/uL (3.63-4.92); WHITE BLOOD COUNT (AUTO) 8.6 K/uL (3.8-11.8)
[2019-07-27 07:40] LABS: POTASSIUM 3.7 mmol/L (3.5-5.1)
[2019-07-27 08:00] VITALS: BP 146/54
[2019-07-27] MEDS: MODAFINIL 100 MG TABLET PO SCH (08:07)
[2019-07-27] MEDS: ALLOPURINOL 100 MG TABLET PO SCH (09:08)
[2019-07-27] MEDS: AMLODIPINE 5 MG TABLET PO SCH (09:08)
[2019-07-27] MEDS: CULTURELLE CAPSULE PO SCH ×2 (09:08→20:58)
[2019-07-27] MEDS: CETIRIZINE HCL 10 MG TABLET PO SCH (09:09)
[2019-07-27] MEDS: CHOLECALCIFEROL 400 UNITS TABLET PO SCH (09:09)
[2019-07-27] MEDS: LIDOCAINE 5% PATCH TD SCH (09:09)
[2019-07-27] MEDS ORDERED: POTASSIUM CHLORIDE 20 MEQ POWDER PACKET PO ONE (09:15)
[2019-07-27] MEDS: FERROUS GLUCONATE 324 MG TABLET PO SCH (10:05)
--- NOTE | 2019-07-27 13:34 | NUR ---
PATIENT IS ALERT, ORIENTED X3, WITH EPISODES OF FORGETFULNESS, NO SOB, RESP EVEN NONLABORED, SKIN WARM AND DRY TO TOUCH, INCISION SITE IS CLEAN AND DRY, IV INTACT TO LEFT HAND, SLING INTACT TO RIGHT ARM, PAIN IS MANAGED WITH ROUTINE TYLENOL, REPOSITIONING, AND DISTRACTION, BLOOD PRESSURE MANAGED WITH MEDICATION, GETTING BETTER IN STRENGTH, ABLE TO HELP WITH TRANSFERS, POTASSIUM REPLACED PO ORDERED. NO DISTRESS NOTED
--- NOTE | 2019-07-27 17:51 | NUR ---
bladder scan result 108ml post voiding.
--- NOTE | 2019-07-27 17:55 | NUR ---
PATIENT CAME BACK FROM THE OUTSIDE ORTHO APT WITH ORDER TO WBAT TO RLE, NWB TO RUE FOR 4 MORE WEEKS. THEN CAN BE WBAT FOR RIGHT ARM ( SHOULDER ) FROM Aug. PATIENT DID NOT EAT DINNER FROM US, HOWEVER WILL EAT HER OWN DINNER BROUGHT BY DAUGHTER
[2019-07-27 19:49] VITALS: BP 143/54
--- NOTE | 2019-07-27 19:49 | NUR ---
Patient is received awake, alert and oriented x 3. Northern Irish speaking. Pt's family is at bedside. Respiratory even and unlabored. No SOB noted. Skin is warm and dry to touch. Incision site is clean and dry. IV intact on left hand, no fluids running. With sling on R arm. Still complains of 8/10 pain, however Tylenol ES has just been given and patient verbalizes slow improvement. Pain managed with routine Tylenol, repositioning and distraction. BP stable at this time: 143/54, with due medications ready to be given. Patient is eating dinner with family at this time. Dr. Stanford seen and examined patient, ND'ed bladder scan. Noted and carried out. Will continue to monitor.
[2019-07-28] MEDS: PANTOPRAZOLE SODIUM 40 MG TABLET.DR PO SCH (05:47)
[2019-07-28] MEDS: ACETAMINOPHEN ES 500 MG TABLET PO SCH ×4 (05:48→21:57)
[2019-07-28 05:51] VITALS: BP 148/76
--- NOTE | 2019-07-28 06:24 | NUR ---
Patient slept intermittently through the night. Tylenol ES given routinely as ordered. Pt appears to have slight breakthrough pain in between the doses, however after repositioning and other nursing interventions. Pain improved. Patient assisted to bathroom x 3. Patient with 2x BM and 3x voiding episode. Needs attended promptly and pain managed effectively. Will continue to monitor and endorse accordingly.
[2019-07-28 08:00] VITALS: BP 147/51
[2019-07-28] MEDS: CETIRIZINE HCL 10 MG TABLET PO SCH (08:32)
[2019-07-28] MEDS: CULTURELLE CAPSULE PO SCH ×2 (08:32→21:57)
[2019-07-28] MEDS: CHOLECALCIFEROL 400 UNITS TABLET PO SCH (08:32)
[2019-07-28] MEDS: MODAFINIL 100 MG TABLET PO SCH (08:32)
[2019-07-28] MEDS: ALLOPURINOL 100 MG TABLET PO SCH (08:32)
[2019-07-28] MEDS: AMLODIPINE 5 MG TABLET PO SCH (08:33)
[2019-07-28] MEDS: LIDOCAINE 5% PATCH TD SCH (08:33)
[2019-07-28] MEDS: Z GUARD REMEDY PASTE 57 GM TUBE TOP PRN (08:34)
[2019-07-28] MEDS: FERROUS GLUCONATE 324 MG TABLET PO SCH (11:06)
[2019-07-28 16:52] VITALS: BP 134/48
--- NOTE | 2019-07-28 18:19 | NUR ---
PATIENT IS ALERT, ORIENTED X3, NO SOB,R MONIQUE EVEN NONLABORED,SKIN WARM AND DRY TO TOUCH, PATIENT'S DAUGHTER REQUESTED VOLTAREN CREAM TO ARTHRITIS PAIN, FAMILY WILL BRING IT, APPROVED BY MD. PATIENT VOIDED WELL, TOLERATED PT, OT SERVICES, NO DISTRESS NOTED.
--- NOTE | 2019-07-28 19:20 | NUR ---
Patient is received awake, alert and oriented x 3. Canadian speaking. Pt's daughter is at bedside. Respiratory even and unlabored. No SOB noted. Skin is warm and dry to touch. Incision site is clean and dry. IV intact on left hand, saline lock. With sling on R arm. Pain managed with routine Tylenol, repositioning and distraction. Pain is currently a 4/10, tolerable. Dr. Stanford seen and examined patient with orders to DC the Zyrte in the AM, ordered nasal spray for allergic rhinitis. Family wants to bring own spray in AM. Noted and carried out. Dtr verbalized that ptient had expressed feeling cold night prior, will ensure that patient is warm during this shift.Will continue to monitor.
[2019-07-28] MEDS ORDERED: NORMAL SALINE NASAL 45 ML BOTTLE NS PRN (19:45)
[2019-07-28 20:07] VITALS: BP 151/55
[2019-07-28 23:05] VITALS: BP 151/55
[2019-07-29 05:34] VITALS: BP 130/68
--- NOTE | 2019-07-29 05:43 | NUR ---
Patient slept well throughout the night. Tylenol ES given routinely as ordered, one hour earlier night prior per patient's daughter's request .No signs of pain noted when asleep. Frequent rounding done, room kept warm. Blankets kept on patient. Will continue to monitor and endorse accordingly.
[2019-07-29] MEDS: ACETAMINOPHEN ES 500 MG TABLET PO SCH ×4 (06:19→23:01)
[2019-07-29] MEDS: PANTOPRAZOLE SODIUM 40 MG TABLET.DR PO SCH (06:19)
[2019-07-29 07:42] LABS: CREATININE 1.1 mg/dL (0.6-1.3); POTASSIUM 4.2 mmol/L (3.5-5.1)
[2019-07-29 07:50] VITALS: BP 153/52
[2019-07-29 07:50] LABS: EOSINOPHILS # (AUTO) 0.2 K/uL (0.0-0.7); HEMOGLOBIN 8.3 g/dL (10.9-14.3); MEAN CORPUSCULAR VOLUME 94.3 fL (75.5-95.3); MONOCYTES # (AUTO) 0.6 K/uL (2.0-10.0); NEUTROPHILS # (AUTO) 4.1 K/uL (1.8-8.9)
[2019-07-29 08:17] LABS: BASOPHILS % (AUTO) 0.7 % (0.0-2.0); EOSINOPHILS % (AUTO) 3.2 % (0.0-7.0); HEMATOCRIT 24.7 % (31.2-41.9); LYMPHOCYTES # (AUTO) 1.5 K/uL (20.0-40.0); LYMPHOCYTES % (AUTO) 23.1 % (20.5-51.5); MEAN CORPUSCULAR HEMOGLOBIN 31.6 uug (24.7-32.8); MEAN CORPUSCULAR HGB CONC 34 g/dL (32.3-35.6); MONOCYTES % (AUTO) 9.2 % (0.0-11.0); NEUTROPHILS % (AUTO) 63.8 % (38.5-71.5); PLATELET COUNT (AUTO) 455 K/uL (179-408); RED BLOOD CELL COUNT(AUTO) 2.62 MIL/uL (3.63-4.92)
[2019-07-29 08:18] LABS: WHITE BLOOD COUNT (AUTO) 6.3 K/uL (3.8-11.8)
[2019-07-29] MEDS: CHOLECALCIFEROL 400 UNITS TABLET PO SCH (08:45)
[2019-07-29] MEDS: CULTURELLE CAPSULE PO SCH ×2 (08:45→20:27)
[2019-07-29] MEDS: ALLOPURINOL 100 MG TABLET PO SCH (08:45)
[2019-07-29] MEDS: MODAFINIL 100 MG TABLET PO SCH (08:45)
[2019-07-29] MEDS: LIDOCAINE 5% PATCH TD SCH (08:45)
[2019-07-29] MEDS: AMLODIPINE 5 MG TABLET PO SCH (08:48)
[2019-07-29] MEDS: FERROUS GLUCONATE 324 MG TABLET PO SCH (11:43)
--- NOTE | 2019-07-29 14:47 | NUR ---
INTERDISCIPLINARY TEAM CONFERENCE
[2019-07-29 15:00] VITALS: BP 150/59
[2019-07-29] MEDS: APIXABAN 5 MG TABLET PO SCH (17:05)
--- NOTE | 2019-07-29 19:20 | NUR ---
RECEIVED PATIENT LYING IN BED. AAOX3. IN NO ACUTE DISTRESS. DENIES ANY SOB. COMPLAIN OF SOME PAIN ON RIGHT SHOULDER. IV SITE ON LEFT HAND INTACT AND PATENT. DAUGHTER AT BEDSIDE. SAFETY MEASURE INITIATED AND CALL CHAVARRIA WITHIN REACHED. CONTINUE TO MONITOR.
[2019-07-29 20:49] VITALS: BP 137/59
[2019-07-30] MEDS: ACETAMINOPHEN ES 500 MG TABLET PO SCH ×4 (05:35→23:13)
[2019-07-30 05:37] VITALS: BP 122/62
[2019-07-30] MEDS: PANTOPRAZOLE SODIUM 40 MG TABLET.DR PO SCH (06:04)
--- NOTE | 2019-07-30 06:08 | NUR ---
PATIENT SLEPT WELL LAST NIGHT. REMAINS AOX3. ABLE TO MAKE NEEDS KNOWN. IN NO ACUTE DISTRESS. DENIES ANY SOB. O2 SAT AT 97% ON RA. VS WNL. IV SITE ON LEFT HAND REMAINS INTACT AND PATENT. NEEDS ASSESSED AND ATTENDED TO. SAFETY MEASURE MAINTAINED AND CALL CHAVARRIA WITHIN REACHED.
[2019-07-30] MEDS: MODAFINIL 100 MG TABLET PO SCH (08:07)
[2019-07-30] MEDS: CULTURELLE CAPSULE PO SCH ×2 (08:07→20:02)
[2019-07-30] MEDS: ALLOPURINOL 100 MG TABLET PO SCH (08:08)
[2019-07-30] MEDS: CHOLECALCIFEROL 400 UNITS TABLET PO SCH (08:08)
[2019-07-30] MEDS: AMLODIPINE 5 MG TABLET PO SCH (08:09)
[2019-07-30] MEDS: LIDOCAINE 5% PATCH TD SCH (08:09)
[2019-07-30] MEDS: APIXABAN 5 MG TABLET PO SCH (08:11)
[2019-07-30 08:27] VITALS: BP 147/52
[2019-07-30] MEDS: FERROUS GLUCONATE 324 MG TABLET PO SCH (11:47)
[2019-07-30 15:57] VITALS: BP 147/54
--- NOTE | 2019-07-30 16:02 | NUR ---
PATIENT ALERT, ORIENTED X3, VERBALLY RESPONSIVE, NO SOB, RESP EVEN NONLABORED,SKIN WARMA AND DRY TO TOUCH, NO DISTRESS NOTED
[2019-07-30] MEDS: APIXABAN 2.5 MG PO SCH (17:40)
--- NOTE | 2019-07-30 19:33 | NUR ---
PATIENT USING RECLINER CHAIR, THE BREAKS ARE NOT WORKING, RECOMMENDED PATIENT NOT TO USE FOR SAFETY REASON, DAUGHTER INSISTED TO USE ANYWAY, ENGINEERING MADE AWARE
[2019-07-30 20:06] VITALS: BP 146/52
--- NOTE | 2019-07-30 20:32 | NUR ---
Received pt resting in bed. AAO x3. German speaking, able to make needs known. Family at bedside. No acute distress noted. Due med given as ordered. Safety measures maintained. Call light and personal items within reach. Will continue to monitor.
[2019-07-31 05:00] VITALS: BP 155/48
[2019-07-31] MEDS: ACETAMINOPHEN ES 500 MG TABLET PO SCH ×4 (05:13→23:06)
[2019-07-31] MEDS: PANTOPRAZOLE SODIUM 40 MG TABLET.DR PO SCH (06:09)
[2019-07-31 08:17] VITALS: BP 155/55
[2019-07-31 08:22] LABS: CARBON DIOXIDE 28 mmol/L (21-32); CHLORIDE 104 mmol/L (98-107); CREATININE 1.1 mg/dL (0.6-1.3); GLUCOSE 95 mg/dL (74-106); UREA NITROGEN, BLOOD 25 mg/dL (7-18)
[2019-07-31 08:25] LABS: BASOPHILS % (AUTO) 0.7 % (0.0-2.0); EOSINOPHILS # (AUTO) 0.2 K/uL (0.0-0.7); EOSINOPHILS % (AUTO) 3.6 % (0.0-7.0); HEMATOCRIT 26.5 % (31.2-41.9); HEMOGLOBIN 8.6 g/dL (10.9-14.3); LYMPHOCYTES # (AUTO) 1.5 K/uL (20.0-40.0); LYMPHOCYTES % (AUTO) 23.6 % (20.5-51.5); MEAN CORPUSCULAR HEMOGLOBIN 30.7 uug (24.7-32.8); MEAN CORPUSCULAR HGB CONC 32 g/dL (32.3-35.6); MEAN CORPUSCULAR VOLUME 94.8 fL (75.5-95.3); MONOCYTES # (AUTO) 0.5 K/uL (2.0-10.0); MONOCYTES % (AUTO) 8.8 % (0.0-11.0); NEUTROPHILS # (AUTO) 3.9 K/uL (1.8-8.9); NEUTROPHILS % (AUTO) 63.3 % (38.5-71.5); PLATELET COUNT (AUTO) 432 K/uL (179-408); RED BLOOD CELL COUNT(AUTO) 2.79 MIL/uL (3.63-4.92); WHITE BLOOD COUNT (AUTO) 6.2 K/uL (3.8-11.8)
[2019-07-31] MEDS: ALLOPURINOL 100 MG TABLET PO SCH (08:39)
[2019-07-31] MEDS: CHOLECALCIFEROL 400 UNITS TABLET PO SCH (08:40)
[2019-07-31] MEDS: AMLODIPINE 5 MG TABLET PO SCH ×2 (08:40→17:45)
[2019-07-31] MEDS: CULTURELLE CAPSULE PO SCH ×2 (08:40→20:01)
[2019-07-31] MEDS: MODAFINIL 100 MG TABLET PO SCH (08:40)
[2019-07-31] MEDS: APIXABAN 2.5 MG PO SCH ×2 (08:41→17:44)
[2019-07-31] MEDS: LIDOCAINE 5% PATCH TD SCH ×2 (08:41→14:56)
[2019-07-31] MEDS: FERROUS GLUCONATE 324 MG TABLET PO SCH (11:38)
[2019-07-31 16:03] VITALS: BP 142/55
--- NOTE | 2019-07-31 19:27 | NUR ---
Patient is AAO x4, Tanzanian speaking mostly but able to express self in Yakut at times. NO SOB noted. Vital signs stable. Due meds administered as ordered. Left wrist IV peripheral line d/c per patient and daughter request. ON routine Tylenol 500mg ES Q 6hrs administered for pain mgnt. Right shoulder with sling in place. Patient with 1 person assist and BRP. NO c/o pain at this time, needs attended, safety measures in place, call light left at bed side, endorsed to next shift and will continue with care.
[2019-07-31 20:39] VITALS: BP 145/58
--- NOTE | 2019-07-31 20:46 | NUR ---
Received pt resting in bed. AAO x3-4. Greenlandic speaking, able to make needs known. Family at bedside. No acute distress noted. Denies pain/ discomfort. Assisted to the bathroom. Due med given as ordered. Safety measures maintained. Call light and personal items within reach. Will continue to monitor.
[2019-08-01 04:00] VITALS: BP 151/63
[2019-08-01] MEDS: ACETAMINOPHEN ES 500 MG TABLET PO SCH ×3 (05:31→18:04)
[2019-08-01] MEDS: PANTOPRAZOLE SODIUM 40 MG TABLET.DR PO SCH (06:04)
[2019-08-01 07:52] VITALS: BP 155/50
[2019-08-01] MEDS: CULTURELLE CAPSULE PO SCH ×2 (08:35→22:13)
[2019-08-01] MEDS: MODAFINIL 100 MG TABLET PO SCH (08:35)
[2019-08-01] MEDS: ALLOPURINOL 100 MG TABLET PO SCH (08:35)
[2019-08-01] MEDS: AMLODIPINE 5 MG TABLET PO SCH ×2 (08:36→17:40)
[2019-08-01] MEDS: LIDOCAINE 5% PATCH TD SCH ×2 (08:38)
[2019-08-01] MEDS: APIXABAN 2.5 MG PO SCH ×2 (08:46→17:39)
[2019-08-01] MEDS: CHOLECALCIFEROL 400 UNITS TABLET PO SCH (08:47)
[2019-08-01] MEDS: VOLTAREN 1% TOP PRN (08:50)
[2019-08-01] MEDS: Z GUARD REMEDY PASTE 57 GM TUBE TOP PRN (08:51)
[2019-08-01] MEDS: FERROUS GLUCONATE 324 MG TABLET PO SCH (11:03)
[2019-08-01 16:19] VITALS: BP 126/54
--- NOTE | 2019-08-01 18:07 | NUR ---
PATIENT IS ALERT,ORIENTED X4, NO DISTRESS NOTED, AMBULATING WITH CANE WITH ASSIST, NEEDS ATTENDED TIMELY, SHOWER OFFERED, PER DAUGHTER SHE WOULD LIKE TO HAVE HER SHOWER TOMORROW.
--- NOTE | 2019-08-01 20:00 | NUR ---
PT IS A/O, AND RESTING IN BED COMFORTABLY WITH NO SIGNS OF DISTRESS. WILL CONTINUE TO MONITOR.
[2019-08-01 20:28] VITALS: BP 160/53
--- NOTE | 2019-08-02 | NUR ---
PT IS SLEEPING, WILL CONTINUE TO MONITOR.
[2019-08-02 01:20] LABS: *BILIRUBIN,URIN NEGATIVE (NEGATIVE); *BLOOD, URINE NEGATIVE (NEGATIVE); *CLARITY,URINE CLEAR (CLEAR); *COLOR,URINE YELLOW (YELLOW); *KETONES,URINE NEGATIVE (NEGATIVE); *UROBILINOGEN,URINE 0.2 E.U./dl (NORMAL); LEUKOCYTE ESTERASE ,URINE NEGATIVE (NEGATIVE); NITRITE, URINE NEGATIVE (NEGATIVE); UGLUCOSE NEGATIVE (NEGATIVE)
--- NOTE | 2019-08-02 04:00 | NUR ---
PT IS RESTING IN BED WITH NO SIGNS OF RESPIRATORY DISTRESS. WILL CONTINUE TO MONITOR, AND ENDORSE TO DAY SHIFT.
[2019-08-02 04:50] VITALS: BP 152/58
[2019-08-02] MEDS: ACETAMINOPHEN ES 500 MG TABLET PO SCH ×5 (06:44→23:52)
[2019-08-02] MEDS: PANTOPRAZOLE SODIUM 40 MG TABLET.DR PO SCH (06:45)
[2019-08-02] MEDS: Z GUARD REMEDY PASTE 57 GM TUBE TOP PRN (07:58)
[2019-08-02] MEDS: VOLTAREN 1% TOP PRN (07:58)
[2019-08-02 08:00] VITALS: BP 164/52
[2019-08-02] MEDS: ALLOPURINOL 100 MG TABLET PO SCH (08:00)
[2019-08-02] MEDS: MODAFINIL 100 MG TABLET PO SCH (08:01)
[2019-08-02] MEDS: CHOLECALCIFEROL 400 UNITS TABLET PO SCH (08:01)
[2019-08-02] MEDS: AMLODIPINE 5 MG TABLET PO SCH ×2 (08:01→17:18)
[2019-08-02] MEDS: CULTURELLE CAPSULE PO SCH ×2 (08:01→20:38)
[2019-08-02] MEDS: APIXABAN 2.5 MG PO SCH ×2 (08:04→17:17)
[2019-08-02] MEDS: LIDOCAINE 5% PATCH TD SCH ×2 (08:05)
[2019-08-02] MEDS: FERROUS GLUCONATE 324 MG TABLET PO SCH (12:10)
--- NOTE | 2019-08-02 13:10 | NUR ---
CHECKED ON PATIENT FREQUENTLY, WHILE MAKING SURE EVERYTHING IS IN REACH, SPECIALLY CALL LIGHT, FOUND CALL LIGHT ON THE CLOSET NEXT TO BED, NOT NEXT TO PATIENT, ASKED FAMILY MEMBER SITTING NEXT TO PATIENT NAME LINDA MCKEON STATED THAT " I PUT IT AWAY BECAUSE I AM HERE" CALL LIGHT GIVEN TO PATIENT AND REINFORCED TO FAMILY THAT DO NOT PUT THE CALL LIGHT AWAY FROM PATIENT, AND DO NOT TURN OFF THE BED ALAR, EVEN YOU ( FAMILY) IS THERE. FAMILY VERBALIZED UNDERSTANDING OF IT, CONTINUE TO MONITOR CLOSELY Addendum: 08/02/19 at 1448 by ARUNA LAWTON RN, RN DISCARD ABOVE CHARTING WRONG PATIENT Addendum: 08/02/19 at 1846 by ARUNA LAWTON RN, RN DISREGARD WRONG DOCUMENTATION
[2019-08-02 16:00] VITALS: BP 136/42
--- NOTE | 2019-08-02 18:44 | NUR ---
PATIENT ALERT, ORIENTED X4, NO SOB, NO DISTRESS NOTED, BLOOD PRESSURE MANAGED WITH MEDS, FAMILY BRINGS FOOD FROM OUTSIDE MOST OF THE TIME FOR PATIENT , TEACHING PROVIDED FOR LOW SALT DIET, PATIENT AND FAMILY VERBALIZED THE UNDERSTANDING OF LOW SALT DIET.
--- NOTE | 2019-08-02 19:20 | NUR ---
RECEIVED PATIENT SITTING IN THE WHEELCHAIR. FAMILY PRESENT. PATIENT AAOX3. IN NO ACUTE DISTRESS. DENIES ANY PAIN OR SOB AT THIS TIME. SLING ON RIGHT ARM PRESENT. PATIENT ABLE TO AMBULATE WITH MIN. ASSIST USING A CANE TO THE BATHROOM. SAFETY MEASURE INITIATED AND CALL CHAVARRIA WITHIN REACHED.
[2019-08-02 19:43] VITALS: BP 143/53
[2019-08-03 04:30] VITALS: BP 116/56
--- NOTE | 2019-08-03 05:41 | NUR ---
PATIENT SLEPT WELL LAST NIGHT. AOX3. IN NO ACUTE DISTRESS. NO COMPLAIN OF PAIN ANY SOB. NEEDS ASSESSED AND ATTENDED TO. SAFETY MEASURE MAINTAINED AND CALL CHAVARRIA WITHIN REACHED.
[2019-08-03] MEDS: ACETAMINOPHEN ES 500 MG TABLET PO SCH ×4 (05:49→23:00)
[2019-08-03] MEDS: PANTOPRAZOLE SODIUM 40 MG TABLET.DR PO SCH (06:01)
[2019-08-03 08:00] VITALS: BP 145/56
[2019-08-03] MEDS: ALLOPURINOL 100 MG TABLET PO SCH (09:38)
[2019-08-03] MEDS: CHOLECALCIFEROL 400 UNITS TABLET PO SCH (09:38)
[2019-08-03] MEDS: APIXABAN 2.5 MG PO SCH ×2 (09:39→17:43)
[2019-08-03] MEDS: MODAFINIL 100 MG TABLET PO SCH (09:40)
[2019-08-03] MEDS: AMLODIPINE 5 MG TABLET PO SCH ×2 (09:40→17:39)
[2019-08-03] MEDS: CULTURELLE CAPSULE PO SCH ×2 (09:40→20:10)
[2019-08-03] MEDS: LIDOCAINE 5% PATCH TD SCH ×2 (09:40→09:41)
[2019-08-03] MEDS: VOLTAREN 1% TOP PRN (09:49)
[2019-08-03] MEDS: FERROUS GLUCONATE 324 MG TABLET PO SCH (12:30)
[2019-08-03 14:39] VITALS: BP 155/54
--- NOTE | 2019-08-03 19:16 | NUR ---
RECEIVED PATIENT LYING IN BED. ASLEEP BUT EASILY AROUSE TO VERBAL STIMULI. IN NO APPARENT DISTRESS. DENIES ANY PAIN OR SOB. SLING ON RIGHT ARM PRESENT. SAFETY MEASURE INITIATED AND CALL CHAVARRIA WITHIN REACHED.
[2019-08-03 19:41] VITALS: BP 147/50
--- NOTE | 2019-08-04 05:16 | NUR ---
REMAINS AOX3. IN NO ACUTE DISTRESS. NO COMPLAIN OF BREAKTHROUGH PAIN OR SOB. NEEDS ASSESSED AND ATTENDED TO. SAFETY MEASURE MAINTAINED AND CALL CHAVARRIA WITHIN REACHED.
[2019-08-04] MEDS: ACETAMINOPHEN ES 500 MG TABLET PO SCH ×4 (05:46→23:56)
[2019-08-04] MEDS: PANTOPRAZOLE SODIUM 40 MG TABLET.DR PO SCH (06:00)
[2019-08-04 06:18] VITALS: BP 154/50
[2019-08-04 07:10] LABS: BASOPHILS % (AUTO) 0.7 % (0.0-2.0); EOSINOPHILS # (AUTO) 0.2 K/uL (0.0-0.7); EOSINOPHILS % (AUTO) 3.1 % (0.0-7.0); HEMATOCRIT 29.5 % (31.2-41.9); HEMOGLOBIN 9.8 g/dL (10.9-14.3); LYMPHOCYTES # (AUTO) 1.3 K/uL (20.0-40.0); LYMPHOCYTES % (AUTO) 25.5 % (20.5-51.5); MEAN CORPUSCULAR HEMOGLOBIN 31.4 uug (24.7-32.8); MEAN CORPUSCULAR HGB CONC 33 g/dL (32.3-35.6); MEAN CORPUSCULAR VOLUME 94.7 fL (75.5-95.3); MONOCYTES # (AUTO) 0.5 K/uL (2.0-10.0); NEUTROPHILS # (AUTO) 3.2 K/uL (1.8-8.9); NEUTROPHILS % (AUTO) 61.7 % (38.5-71.5); PLATELET COUNT (AUTO) 332 K/uL (179-408); RED BLOOD CELL COUNT(AUTO) 3.11 MIL/uL (3.63-4.92); WHITE BLOOD COUNT (AUTO) 5.2 K/uL (3.8-11.8)
[2019-08-04 07:16] LABS: CREATININE 1.1 mg/dL (0.6-1.3); POTASSIUM 3.8 mmol/L (3.5-5.1)
[2019-08-04 07:32] VITALS: BP 148/49
[2019-08-04] MEDS: MODAFINIL 100 MG TABLET PO SCH (09:03)
[2019-08-04] MEDS: AMLODIPINE 5 MG TABLET PO SCH ×2 (09:03→17:30)
[2019-08-04] MEDS: HYDROCODONE/APAP 5-325MG TABLET PO PRN (09:03)
[2019-08-04] MEDS: CULTURELLE CAPSULE PO SCH ×2 (09:05→20:02)
--- NOTE | 2019-08-04 09:05 | NUR ---
Pt A/O x3. No distress noted or reported. Pt c/o aching pain in right shoulder of level 8/10. [place] 5/325 mg administered per MD PRN orders. Will reassess. Pt was bathed. Pt now working with PT. Right arm in sling secondary to NWB. Steristrips in placed, covered by border dressing. VS stable. All morning meds administered per MD orders. Pt on fall precautions. Bed in lowest position, side rails up x2, call light within reach, instructed to utilize call light for assistance as needed. Pt educated on plan of care. Pt verbalized understanding. All safety precautions in place. Monitoring continued.
[2019-08-04] MEDS: ALLOPURINOL 100 MG TABLET PO SCH (09:06)
[2019-08-04] MEDS: CHOLECALCIFEROL 400 UNITS TABLET PO SCH (09:06)
[2019-08-04] MEDS: APIXABAN 2.5 MG PO SCH ×2 (09:06→17:30)
[2019-08-04] MEDS: LIDOCAINE 5% PATCH TD SCH ×2 (09:07)
[2019-08-04] MEDS: FERROUS GLUCONATE 324 MG TABLET PO SCH (11:58)
[2019-08-04 14:49] VITALS: BP 136/49
[2019-08-04 19:00] VITALS: BP 138/49
--- NOTE | 2019-08-04 19:30 | NUR ---
RECEIVED PATIENT SITTING IN THE WHEELCHAIR. FAMILY PRESENT. AAOX3. IN NO ACUTE DISTRESS. NO COMPLAIN OF PAIN OR SOB AT THIS TIME. SLING ON RIGHT ARM PRESENT. SAFETY MEASURE INITIATED AND CALL CHAVARRIA WITHIN REACHED.
--- NOTE | 2019-08-05 05:09 | NUR ---
SLEPT WELL LAST NIGHT. REMAINS AOX3. IN NO ACUTE DISTRESS. NEEDS ASSESSED AND ATTENDED TO. SAFETY MEASURE MAINTAINED AND CALL CHAVARRIA WITHIN REACHED.
[2019-08-05 05:31] VITALS: BP 138/43
[2019-08-05] MEDS: ACETAMINOPHEN ES 500 MG TABLET PO SCH ×3 (05:53→17:56)
[2019-08-05] MEDS: PANTOPRAZOLE SODIUM 40 MG TABLET.DR PO SCH (06:08)
[2019-08-05 08:00] VITALS: BP 148/48
[2019-08-05] MEDS: LIDOCAINE 5% PATCH TD SCH ×2 (08:29→08:30)
[2019-08-05] MEDS: CHOLECALCIFEROL 400 UNITS TABLET PO SCH (08:30)
[2019-08-05] MEDS: CULTURELLE CAPSULE PO SCH ×2 (08:30→20:29)
[2019-08-05] MEDS: ALLOPURINOL 100 MG TABLET PO SCH (08:30)
[2019-08-05] MEDS: MODAFINIL 100 MG TABLET PO SCH (08:31)
[2019-08-05] MEDS: AMLODIPINE 5 MG TABLET PO SCH ×2 (08:31→17:56)
[2019-08-05] MEDS: HYDROCODONE/APAP 5-325MG TABLET PO PRN (08:49)
--- NOTE | 2019-08-05 08:49 | NUR ---
Pt A/Ox4. No distress noted or reported. Pt c/o aching pain in right shoulder of level 8/10. [place] 5/325 mg PO administered per MD PRN order. Will reassess. All morning meds administered except Eliquis as not avail yet. Request sent to Pharmacy. All safety precautions in place. Pt going to PT. Monitoring continued.
[2019-08-05] MEDS: APIXABAN 2.5 MG PO SCH ×2 (11:14→18:10)
[2019-08-05] MEDS: FERROUS GLUCONATE 324 MG TABLET PO SCH (11:14)
--- NOTE | 2019-08-05 14:56 | NUR ---
INTERDISCIPLINARY TEAM CONFERENCE
[2019-08-05 16:00] VITALS: BP 133/52
--- NOTE | 2019-08-05 19:30 | NUR ---
IN BED, AWAKE, DAUGHTERS AT BEDSIDE. DENIES ANY PAIN/DISCOMFORTS AT THIS TIME. ASSISTED TO THE BATHROOM WITH 2 PEOPLE ASSIST. HAD I MEDIUM SIZE BM TODAY. GOOD SKIN/NICHOLAS CARE RENDERED. SAFETY MEASURE AND FALL PRECAUTION MAINTAINED. CONTINUE CARE PLANNED.
[2019-08-05 20:46] VITALS: BP 133/55
--- NOTE | 2019-08-05 21:15 | NUR ---
COMPLAINT OF HEADACHE, TYLENOL GIVEN ORDERED AND NEEDED. WILL MONITOR. Addendum: 08/06/19 at 0646 by ANNE MARIE MENG RN WRONG PATIENT
[2019-08-06] MEDS: ACETAMINOPHEN ES 500 MG TABLET PO SCH ×3 (00:09→12:02)
[2019-08-06 05:46] VITALS: BP 151/49
[2019-08-06] MEDS: PANTOPRAZOLE SODIUM 40 MG TABLET.DR PO SCH (06:19)
--- NOTE | 2019-08-06 06:43 | NUR ---
SHIFT END REPORT: VS STABLE. NO COMPLAINT PRESENTED ALL NIGHT. SLEPT WELL. ALL NEEDS ATTENDED AND MET. NO SIGNIFICANT EVENT REPORTED. CONTINUE CURRENT REHAB PLAN OF CARE.
[2019-08-06 08:00] VITALS: BP 145/59
[2019-08-06] MEDS: CULTURELLE CAPSULE PO SCH (10:23)
[2019-08-06] MEDS: APIXABAN 2.5 MG PO SCH (10:24)
[2019-08-06 10:25] VITALS: BP 145/59
[2019-08-06] MEDS: AMLODIPINE 5 MG TABLET PO SCH (10:25)
[2019-08-06] MEDS: CHOLECALCIFEROL 400 UNITS TABLET PO SCH (10:26)
[2019-08-06] MEDS: ALLOPURINOL 100 MG TABLET PO SCH (10:26)
[2019-08-06] MEDS: FERROUS GLUCONATE 324 MG TABLET PO SCH (10:27)
[2019-08-06] MEDS: LIDOCAINE 5% PATCH TD SCH ×2 (10:27)
--- NOTE | 2019-08-06 10:53 | NUR ---
Patient noted resting in bed with eyes closed, complaints of right shoulder pain, no signs of distress noted, call light in reach bed locked and in lowest position, all needs met.
--- NOTE | 2019-08-06 13:28 | NUR ---
patient discharged via gurney and [facility] serviced, accompanied by daughter Estrellita, exit care provided, discharge instructions given, medications retrieved from pharmacy and given to daughter, all belongings accounted for and belongings sheet signed, MD talley and Jasvir notified of patients discharge, patient will have [facility] provide PT, OT, and an RN. [place] [employer] will provide a wheelchair, quad cane, bedside commode, and hospital bed to be delivered to home. Follow up appointment to be arranged by family with MD Reyes, patient sent home with X-ray on CD. Medications sent to [place] [facility], Rx for [place] given to patient's daughter.
== END 2019-08-06 13:00 | disposition home health service (06) | DRG 559 ==
PROVIDERS: ADMIT Physical Medicine & Rehabilitation Pain Medicine; ATTEND Physical Medicine & Rehabilitation Pain Medicine
PROC: 30233N1 Transfusion of Nonautologous Red Blood Cells into Peripheral Vein, Percutaneous Approach (ICD-10-PCS; principal; 2019-07-20)
DX: S72.001D Fracture of unspecified part of neck of right femur, subsequent encounter for closed fracture with routine healing (principal); E43 Unspecified severe protein-calorie malnutrition; N17.0 Acute kidney failure with tubular necrosis; I13.0 Hypertensive heart and chronic kidney disease with heart failure and stage 1 through stage 4 chronic kidney disease, or unspecified chronic kidney disease; I50.32 Chronic diastolic (congestive) heart failure; N39.0 Urinary tract infection, site not specified; E87.1 Hypo-osmolality and hyponatremia; S42.211D Unspecified displaced fracture of surgical neck of right humerus, subsequent encounter for fracture with routine healing; W18.30XD Fall on same level, unspecified, subsequent encounter; Z96.641 Presence of right artificial hip joint; B96.20 Unspecified Escherichia coli [E. coli] as the cause of diseases classified elsewhere; D50.9 Iron deficiency anemia, unspecified; E03.9 Hypothyroidism, unspecified; E66.9 Obesity, unspecified; Z68.32 Body mass index [BMI] 32.0-32.9, adult; E78.5 Hyperlipidemia, unspecified; F41.9 Anxiety disorder, unspecified; I48.0 Paroxysmal atrial fibrillation; M81.0 Age-related osteoporosis without current pathological fracture; N18.2 Chronic kidney disease, stage 2 (mild); M10.9 Gout, unspecified; I87.2 Venous insufficiency (chronic) (peripheral); Z79.01 Long term (current) use of anticoagulants; Z88.1 Allergy status to other antibiotic agents; R26.9 Unspecified abnormalities of gait and mobility; R42 Dizziness and giddiness; M19.90 Unspecified osteoarthritis, unspecified site; E83.42 Hypomagnesemia; I25.10 Atherosclerotic heart disease of native coronary artery without angina pectoris; I83.90 Asymptomatic varicose veins of unspecified lower extremity; K44.9 Diaphragmatic hernia without obstruction or gangrene; R32 Unspecified urinary incontinence; M25.411 Effusion, right shoulder; R41.0 Disorientation, unspecified; Z88.2 Allergy status to sulfonamides; R33.8 Other retention of urine; R73.9 Hyperglycemia, unspecified
CPT/HCPCS: 36415; 71250; 73020; 73060; 73501; 73502; 82652; 83550; 83735; 84100; 85025; 86850; 86900; 86901; 86920; 87077; 87086; A4663; A9150; C1758; J2916; J3490; J7040; J8499; P9016-BL; P9021